=== PATIENT | male | born 1965 | race African-American/Black ===

== ENCOUNTER 2016-12-29 18:14 | Emergency (ER) | payer BC, OTHER ==
[~2016-12-29 18:14] MED LIST: Sterile Water Irrigation 250 ML BOT ONE
[2016-12-29] MEDS ORDERED: Lidocaine 2% w/Epinephrine 1:200K 20 ML VIAL ONE (18:35)
[2016-12-29] MEDS ORDERED: Acetaminophen/Codeine 30-300mg Tablet ONE (19:05)
[2016-12-29] MEDS ORDERED: Sulfameth/Trimethoprim DS 800-160mg TAB ONE (19:05)
[2016-12-29] MEDS ORDERED: Cephalexin 500 MG CAP ONE (19:05)
[2016-12-29] MEDS ORDERED: Triple Antibiotic Oint 1 GM Packet ONE (19:10)
== END 2016-12-29 19:20 | disposition home or self-care (01) ==
LOC: MADERS 18:14
DX: L02.415 Cutaneous abscess of right lower limb (principal)
CPT/HCPCS: 10060; 87070; 87077; 87186; 87205

== ENCOUNTER 2023-09-11 14:30 | Emergency (ER) | payer BC ==
[~2023-09-11 14:30] MED LIST changes: +Iopamidol 370 76% 100 ML VIAL ONE; -Sterile Water Irrigation 250 ML BOT ONE
[2023-09-11 15:01] LABS: Bilirubin Negative (Negative); Blood, Urine Negative (Negative); Glucose, Urine (Dipstick) Negative (Negative); Ketone, Urine Negative (Negative); Leukocyte Negative (Negative); Nitrite Negative (Negative); Protein, Urine (Dipstick) Negative (Neg-Trace); Urobilinogen 0.2 mg/dL (Less than 2)
[2023-09-11 15:02] LABS: Clarity Hazy (Clear); Specific Gravity, Urine 1.023 (1.002-1.036)
[2023-09-11] MEDS ORDERED: Ondansetron PF 4 MG/2 ML Vial ONE (15:03)
[2023-09-11] MEDS ORDERED: Morphine 4 MG/ML VIAL ONE (15:03)
[2023-09-11 15:05] LABS: Bacteria/HPF Rare-Few HPF (None Seen); CAUTI Indications for Culture Pelvic or flank pain; Mucous/LPF 1+ LPF (<2+); Squamous Epithelial 0-3 HPF (0-3); WBC/HPF 0-3 HPF (0-3)
[2023-09-11 15:06] LABS: Urine Culture Reflex No No
[2023-09-11 15:29] LABS: #Basophils 0.1 thou/uL (0.0-0.2); #Eosinphils 0.2 thou/uL (0.0-0.7); #Lymphocytes 1.9 thou/uL (1.20-3.40); #Monocytes 0.6 thou/uL (0.11-0.59); #Neutrophils 6.1 thou/uL (1.40-6.50); %Basophils 0.7 % (0.0-1.0); %Eosinophils 1.8 % (0.0-10.0); %Lymphocytes 21.5 % (21.0-51.0); %Monocytes 6.4 % (0.0-10.0); %Neutrophils 69.6 % (42.0-75.0); Hematocrit 41.1 % (42.0-52.0); Hemoglobin 12.7 g/dL (14.0-18.0); Mean Corpuscular HGB CONC 30.9 g/dL (32.0-36.0); Mean Corpuscular Volume 90.8 fl (78.0-98.0); Mean Platelet Volume 6.6 fL (7.4-10.4); Platelet Count 211 10x3/uL (130-400); Red Blood Cell (RBC) Count 4.53 mill/uL (4.70-6.10); White Blood Cell (WBC) Count 8.7 10x3/uL (4.8-10.8)
[2023-09-11 15:43] LABS: ALT (SGPT) 30 U/L (8-55); AST (SGOT) 24 U/L (5-34); Albumin 4.1 g/dL (3.5-5.0); Alkaline Phosphatase 44 U/L (40-110); Anion Gap 12 mmol/L (10-20); BUN (Urea Nitrogen) 15 mg/dL (8.4-25.7); Bilirubin, Total 0.4 mg/dL (0.2-1.2); Calc. Creatinine Clearance 0 mL/min (70-130); Calcium 9.1 mg/dL (7.8-10.44); Carbon Dioxide 26 mmol/L (22-29); Chloride 108 mmol/L (98-107); Estimated GFR 88; Globulin 2.7 g/dL (2.4-3.5); Glucose 100 mg/dL (70-105); Potassium 4.3 mmol/L (3.5-5.1); Protein, Total 6.8 g/dL (6.0-8.3); Sodium 142 mmol/L (136-145)
[2023-09-11] MEDS ORDERED: Sodium Chloride 0.9% 1,000 ML ONE ×2 (15:48→16:49)
[2023-09-11] MEDS ORDERED: cefTRIAXone (ROCEPHIN) 1 GM VIAL ONE (16:32)
[2023-09-11] MEDS ORDERED: metroNIDAZOLE 500 MG (100 mL) BAG ONE (16:33)
[2023-09-11] MEDS ORDERED: Sodium Chloride 0.9% 100 ML ONE (16:33)
== END 2023-09-11 17:17 | disposition short-term general hospital (02) ==
LOC: MADERS 14:30
DX: K63.1 Perforation of intestine (nontraumatic) (principal); K57.92 Diverticulitis of intestine, part unspecified, without perforation or abscess without bleeding; E87.20 Acidosis, unspecified; N10 Acute pyelonephritis
CPT/HCPCS: 36415; 74177; 80053; 81001; 83605; 85025; 96361; 96374; 96375; J0696; J2270; J2405; J3490; J7050; Q9967